=== PATIENT | female | born 1975 | race Two or more races ===

== ENCOUNTER 2024-12-23 10:19 | Emergency (ER) | payer BC, SELFPAY ==
[2024-12-23 11:18] VITALS: BP 128/77; PULSE 79; RESP 19; TEMP 36.7; O2SAT 99; BMI 35.9
--- NOTE | 2024-12-23 11:26 | XR_ITS ---
EXAMINATION: Ankle, left 3 mm . Technique: Ankle AP, oblique, lateral 3 views Date and time of exam: December 23, 2024 1138 hrs. Indications: Twisting injury to the ankle yesterday, ankle pain. Findings: No fracture or dislocation. Impression: No fracture or dislocation. No foreign body
--- NOTE | 2024-12-23 11:26 | EDNOTE_ITS ---
<Statement entered by Kristine Desouza MD - 12/23/24 17:34> As co-signing physician, I was present and available for consult prn. I concur with the plan and care as documented by the midlevel provider. ED General RME/HPI General Chief complaint: Ankle/Foot Injury Stated complaint: LEFT ANKLE PAIN/SWELLING Time Seen by Provider: 12/23/24 11:07 Arrival date/time: 12/23/24 10:19 CC: Left ankle pain HPI patient rolled her ankle last night while drinking alcohol woke up this morning with extreme pain patient states she can bear weight but is exceedingly painful no other complaints Related Data Allergies Allergy/AdvReac Type Severity Reaction Status Date / Time No Known Allergies Allergy Verified 12/23/24 10:21 Review of Systems Review of Systems Narrative Review of Systems: GEN: No fever, no chills, no weight loss EYES: No discharge, no visual changes, no pain HEENT: No ear pain, no congestion, no sore throat PULM: No shortness of breath, no cough, no congestion CV: No chest pain, no dyspnea on exertion, no palpitations GI: No nausea, no vomiting, no diarrhea, no pain, no constipation : No frequency, no urgency, no dysuria MUSC/SKEL: + joint pain, no back pain SKIN: No rash PSYCH: No hallucinations, no depression HEME/LYMPH: No easy bleeding or bruising tendencies NEURO: No weakness, no headache Past Medical History Social History SMOKING STATUS: Never smoker ED Exam Narrative Physical exam: [General: Obese not in cot no acute distress Head normocephalic HEENT: Within acceptable limits Neck is supple nontender Chest equal chest rise nontender to palpation Respiratory: Clear to auscultation no wheezes crackles or rubs CV: Rate rhythm is regular no murmurs rubs or clicks Abdomen is distended secondary to body habitus soft nontender no masses positive bowel sounds all 4 quadrants Back: No CVA tenderness no spinous process tenderness from cervical spine thoracic and lumbar spine Skin: Intact no petechiae rash induration ulceration or crepitus Extremities: Left ankle: Patient has a lateral malleolus edema with tenderness to palpation no ecchymosis, full range of motion of the knee and the toes, no medial malleolus tenderness calcaneal squeeze tenderness or distal metatarsal tenderness with palpation. Moving all other extremities against resistance cap refill less than 2 seconds neurosensory intact Neuro: Awake alert oriented x3 Glascow coma 15 no focal deficits] Course Quality Measures none Orders Category Date Time Status Crutches .NOW Care 12/23/24 12:46 Completed Splint / Immobilizer STAT Care 12/23/24 12:46 Completed XR ankle comp LT min 3V Stat Exams 12/23/24 11:26 Completed Vital Signs Vital signs: Vital Signs Temperature 98.1 F 12/23/24 11:18 Pulse Rate 79 12/23/24 11:18 Respiratory Rate 19 12/23/24 11:18 Blood Pressure 128/77 12/23/24 11:18 Pulse Oximetry (%) 99 12/23/24 11:18 Oxygen Delivery Method Room Air 12/23/24 11:18 [facility] Patient data External records reviewed:: [facility] previous records Clinical information provided by:: patient Social determinants that could affect healthcare access:: none Patient has the following chronic illnesses:: None How is presenting disease/condition affected by chronic disease/condition?: uneffected by Evaluation data The following diagnostics were reviewed and interpreted by me:: radiology exam(s) Lab and/or radiology exams considered but not ordered:: X-rays interpreted by me read by radiology as negative for any acute fracture malalignment or dislocation. Interpretation Summary: Patient has a sprained ankle Medications Medications considered but not ordered:: None Medication administrations:: None Consultations Consultation(s) initiated? (list below): No Diagnosis Differential Diagnosis ED Complaint MDM: Sprain strain fracture of the ankle Most likely diagnosis given after review of the tests above:: Ankle sprain Admission Indicated Admission indicated?: not indicated Explain why admission is indicated or not indicated:: Stable for outpatient follow-up Admission Request Was there a request for admission?: No Disposition Plan Disposition Plan: Discharge Discharge Attestation Discharge Attestation: The patient and all family members were given an opportunity to ask questions and understood the discharge instructions. Discharge instructions specifically effects, indications for sooner follow up or return to the emergency department, and the expected course of current diagnosis. Patient condition: Stable Medical Decision Making Differential Diagnosis Differential Diagnosis: Sprain strain fracture of the ankle Discharge Plan Plan Patient Disposition: HOME (Self Care) Patient condition on transfer: Stable Prescriptions/Referrals Referrals: Anthony Smith MD [Primary Care Provider] - In 1 week Problem List Clinical Impression: Ankle sprain and strain Patient/Caregiver Discharge Instructions Other Activity Instructions:: Advance to bearing weight as tolerated use the crutches for the first couple of days. Ibuprofen or Tylenol for pain. Education Materials: ED Ankle Sprain (Adult) Print Language: Turkish Stand Alone Forms: Dotty Award Info., Work/School Release, Patient Portal Info Letter PA/REVIEW NURSE Supervising Physician PA/REVIEW NURSE Supervising Physician: Sonny Escalante ENP
== END 2024-12-23 13:09 | disposition home or self-care (01) ==
PROVIDERS: Emergency Provider Emergency Medicine; PCP Family Medicine
DX: S93.402A Sprain of unspecified ligament of left ankle, initial encounter (principal); X50.1XXA Overexertion from prolonged static or awkward postures, initial encounter
CPT/HCPCS: 73610; 99283